=== PATIENT | female | born 1985 | race African-American/Black ===

== ENCOUNTER 2016-10-22 13:36 | Emergency (ER) | payer OTHER ==
[~2016-10-22] VITALS: Ht 167.6 cm; Wt 131.5 kg
[~2016-10-22 13:36] MED LIST: FLONASE 0.05%50 MCG NASAL; MACROBID 100 M100 M1 PO; NAPROSYN500 MG PO; NOHOMEMEDICATIONS; PROMETHAZINE-C120 ML PO; TESSALON PERLE100 MG PO; TIZANIDINE HCL4 MG PO
[2016-10-22] MEDS ORDERED: PERCOCET PO (14:00)
[2016-10-22 14:23] VITALS: BP 145/57
== END 2016-10-22 14:24 | disposition home or self-care (01) ==
LOC: ER 13:36
DX: S82.891A Other fracture of right lower leg, initial encounter for closed fracture (principal); F17.210 Nicotine dependence, cigarettes, uncomplicated; Z90.89 Acquired absence of other organs; V47.9XXA Unspecified car occupant injured in collision with fixed or stationary object in traffic accident, initial encounter; Y93.I9 Activity, other involving external motion; Y92.410 Unspecified street and highway as the place of occurrence of the external cause; Y99.9 Unspecified external cause status